=== PATIENT | female | born 1985 | race American Indian/Alaskan Native ===

== ENCOUNTER 2016-05-24 15:20 | Outpatient (CLI) | payer MEDICAID ==
[2016-05-24] MEDS ORDERED: TYLENOL PO ONE (15:58)
[2016-05-24] MEDS ORDERED: MORPHINE IV ONE (18:00)
[2016-05-24] MEDS ORDERED: PHENERGAN PO ONE (18:00)
[2016-05-24 18:20] VITALS: BP 110/61
== END 2016-05-24 18:30 | disposition home or self-care (01) ==
LOC: TRG 15:20
PROVIDERS: ATTEND Obstetrics & Gynecology
DX: O77.9 Labor and delivery complicated by fetal stress, unspecified (principal); O47.9 False labor, unspecified; Z3A.00 Weeks of gestation of pregnancy not specified
CPT/HCPCS: 59025; J2270; Q0169

== ENCOUNTER 2019-06-27 19:09 | Emergency (ER) | payer MEDICAID ==
[~2019-06-27 19:09] MED LIST: POTASSIUM CHLORIDE ER 20 MEQ TAB PO ONE
--- NOTE | 2019-06-27 21:56 | Event Note ---
ED Screening Note Date of service: 06/27/19 Time: 21:55 ED Screening Note: 33 y o f presents with abd pain x 2 weeks now experiencing n/v/d, dysuria LMP: 2 This initial assessment/diagnostic orders/clinical plan/treatment(s) is/are subject to change based on patients health status, clinical progression and re- assessment by fellow clinical providers in the ED. Further treatment and workup at subsequent clinical providers discretion. Patient/guardian urged not to elope from the ED as their condition may be serious if not clinically assessed and managed. Initial orders include: labs,ua,upt acc eval
[2019-06-27 22:55] LABS: Bilirubin,Urine NEG (Negative); Blood,Urine NEG (Negative); Color,Urine Amber (Yellow); Mucus,Urine 3+ /HPF
[2019-06-27 23:11] LABS: Basophils % (Auto) 0.2 % (0.0-1.8); Hematocrit 34.4 % (30.3-42.9); Hemoglobin 11.4 gm/dl (10.1-14.3); Lymphocytes # (Auto) 1.4 K/mm3 (1.2-5.4); Mean Corpuscular HGB Conc 33 % (30-34); Mean Corpuscular Volume 86 fl (79-97); Monocytes # (Auto) 1.3 K/mm3 (0.0-0.8); Monocytes % (Auto) 8.4 % (0.0-7.3); Platelet Count 428 K/mm3 (140-440); Red Blood Count 3.99 M/mm3 (3.65-5.03); Red Cell Distribution Width 13.3 % (13.2-15.2)
[2019-06-27 23:30] LABS: Alanine Aminotransferase 12 units/L (7-56); Albumin 3.1 g/dL (3.9-5); BUN/Creatinine Ratio 40; Blood Urea Nitrogen 8 mg/dL (7-17); Calcium 8.9 mg/dL (8.4-10.2); Hemolysis Index 5
[2019-06-27] MEDS ORDERED: cefTRIAXone/NS 1 GM/50 ML 1 GM/50 ML BAG IV ONE (23:48)
[2019-06-27] MEDS ORDERED: POTASSIUM CHLORIDE ER 20 MEQ TAB PO ONE ×2 (23:48→23:50)
[2019-06-27] MEDS ORDERED: ONDANSETRON 4 MG/2 ML INJ IV ONE (23:48)
[2019-06-27] MEDS ORDERED: SODIUM CHLORIDE 0.9% 1000 ML 1,000 ML IV ONE (23:48)
--- NOTE | 2019-06-28 00:37 | Emergency Department Report ---
ED Abdominal Pain HPI - General Chief Complaint: Abdominal Pain Stated Complaint: UTI Time Seen by Provider: 06/27/19 23:46 Source: patient, EMS Mode of arrival: Wheelchair Limitations: No Limitations - History of Present Illness Initial Comments: Ms Carrizales is a 33 y/o f , LMP: 06/06, who presents with abd pain x 2 weeks. she is now experiencing n/v/d, dysuria for last week, she was tx with keflex with no improvement in symptoms , states symptoms are exacerbated by activity, symptoms are relieved by nothing, Complaint: abdominal pain, flank pain Onset/Timin -: week(s) Location: bilateral flank Radiation: LLQ, suprapubic Migration to: suprapubic Severity: moderate Severity scale (0 -10): 7 Quality: sharp Consistency: constant Improves With: nothing Worsens With: movement Associated Symptoms: nausea, vomiting, diarrhea, fever, chills. denies: constipation, dysuria, melena - Related Data LMP Date: 06/06/19 Previous Rx's Medication Instructions Recorded Last Taken Type Vit No.130/Iron/Folic 1 each PO DAILY 30 Days tablet 01/28/16 05/23/16 09:00 Rx [ Tablet] 1 propylthiouraciL [Propylthiouracil] 100 mg PO TID 21 Days tablet 01/28/16 Unknown Rx Acetaminophen/Codeine [Tylenol #3] 1 tab PO Q6H PRN #7 tab 03/28/16 Unknown Rx Ondansetron [Zofran TAB] 4 mg PO Q8HR PRN #14 tablet 03/28/16 Unknown Rx Acetaminophen/Codeine [Tylenol 1 tab PO Q6H PRN #12 tab 06/28/19 Unknown Rx /Codeine # 3 tab] Ciprofloxacin HCl [Ciprofloxacin 500 mg PO BID 10 Days #20 tab 06/28/19 Unknown Rx TAB] Famotidine [Pepcid] 20 mg PO BID #30 tablet 06/28/19 Unknown Rx metroNIDAZOLE [Flagyl] 500 mg PO BID 10 Days #20 tab 06/28/19 Unknown Rx Allergies Allergy/AdvReac Type Severity Reaction Status Date / Time No Known Allergies Allergy Verified 11/11/13 10:49 ED Review of Systems ROS: Stated complaint: UTI Other details as noted in HPI Constitutional: denies: chills, fever Eyes: denies: eye pain, eye discharge, vision change ENT: denies: ear pain, throat pain Respiratory: denies: cough, shortness of breath, wheezing Cardiovascular: as per HPI Endocrine: no symptoms reported Gastrointestinal: abdominal pain, nausea, vomiting, diarrhea. denies: melena Genitourinary: urgency, dysuria, frequency. denies: hematuria, discharge, a bnormal menses Musculoskeletal: back pain (bilat flank) Skin: denies: rash, lesions Neurological: denies: headache, weakness, paresthesias Psychiatric: denies: anxiety, depression Hematological/Lymphatic: denies: easy bleeding, easy bruising ED Past Medical Hx - Past Medical History Previous Medical History?: No Hx Hypertension: No Hx CVA: No Hx Heart Attack/AMI: No Hx Congestive Heart Failure: No Hx Diabetes: No Hx Deep Vein Thrombosis: No Hx Pulmonary Embolism: No Hx GERD: No Hx Liver Disease: No Hx Renal Disease: No Hx Sickle Cell Disease: No Hx Arthritis: No Hx Headaches / Migraines: No Hx Seizures: No Hx Kidney Stones: No Hx Psychiatric Treatment: No Hx Asthma: No Hx COPD: No Hx Tuberculosis: No Hx Dementia: No Hx HIV: No - Surgical History Past Surgical History?: Yes Hx Coronary Stent: No Hx Open Heart Surgery: No Hx Pacemaker: No Hx Internal Defibrillator: No Hx Cholecystectomy: No Hx Appendectomy: No Hx Breast Surgery: No Additional Surgical History: x2 - Social History Smoking Status: Never Smoker - Medications Home Medications: Home Medications Medication Instructions Recorded Confirmed Last Taken Type Vit No.130/Iron/Folic 1 each PO DAILY 30 Days tablet 01/28/16 05/24/16 05/23/16 09:00 Rx [ Tablet] 1 propylthiouraciL [Propylthiouracil] 100 mg PO TID 21 Days tablet 01/28/16 05/24/16 Unknown Rx Acetaminophen/Codeine [Tylenol #3] 1 tab PO Q6H PRN #7 tab 03/28/16 05/24/16 Unknown Rx Ondansetron [Zofran TAB] 4 mg PO Q8HR PRN #14 tablet 03/28/16 05/24/16 Unknown Rx Acetaminophen/Codeine [Tylenol 1 tab PO Q6H PRN #12 tab 06/28/19 Unknown Rx /Codeine # 3 tab] Ciprofloxacin HCl [Ciprofloxacin 500 mg PO BID 10 Days #20 tab 06/28/19 Unknown Rx TAB] Famotidine [Pepcid] 20 mg PO BID #30 tablet 06/28/19 Unknown Rx metroNIDAZOLE [Flagyl] 500 mg PO BID 10 Days #20 tab 06/28/19 Unknown Rx ED Physical Exam - General Limitations: No Limitations General appearance: alert, in no apparent distress - Head Head exam: Present: atraumatic, normocephalic - Eye Eye exam: Present: normal appearance, PERRL, EOMI Pupils: Present: normal accommodation - ENT ENT exam: Present: mucous membranes moist - Neck Neck exam: Present: normal inspection, full ROM. Absent: tenderness - Respiratory Respiratory exam: Present: normal lung sounds bilaterally. Absent: respiratory distress, wheezes, stridor, chest wall tenderness - Cardiovascular Cardiovascular Exam: Present: regular rate, normal rhythm, normal heart sounds. Absent: systolic murmur, diastolic murmur, rubs, gallop - GI/Abdominal GI/Abdominal exam: Present: soft, tenderness (bilat lower quads), guarding (mild to deep palpation), normal bowel sounds. Absent: distended, rebound, rigid, bruit, hernia - Rectal Rectal exam: Present: deferred - Extremities Exam Extremities exam: Present: normal inspection, full ROM, normal capillary refill. Absent: tenderness - Back Exam Back exam: Present: normal inspection, full ROM, tenderness, CVA tenderness (R), CVA tenderness (L). Absent: vertebral tenderness - Expanded Back Exam Expanded Back exam: Absent: saddle anesthesia Back exam: Negative Straight Leg Raising: Left, Right - Neurological Exam Neurological exam: Present: alert, oriented X3, CN II-XII intact, normal gait - Psychiatric Psychiatric exam: Present: normal affect, normal mood - Skin Skin exam: Present: warm, dry, intact, normal color. Absent: rash ED Course Vital Signs 06/27/19 21:54 Temperature 98.5 F Pulse Rate 120 H Respiratory 18 Rate Blood Pressure 113/83 O2 Sat by Pulse 100 Oximetry ED Medical Decision Making - Lab Data Result diagrams: 06/27/19 22:41 06/27/19 22:41 Labs 06/27/19 06/27/19 06/27/19 22:41 22:41 22:41 WBC 15.1 H RBC 3.99 Hgb 11.4 Hct 34.4 MCV 86 MCH 29 MCHC 33 RDW 13.3 Plt Count 428 Lymph % (Auto) 9.0 L [place] % (Auto) 8.4 H Eos % (Auto) 0.0 Baso % (Auto) 0.2 Lymph # 1.4 [place] # 1.3 H Eos # 0.0 Baso # 0.0 Seg Neutrophils % 82.4 H Seg Neutrophils # 12.5 H Sodium 139 Potassium 2.8 L* Chloride 98.9 Carbon Dioxide 21 L Anion Gap 22 BUN 8 Creatinine 0.2 L Estimated GFR > 60 BUN/Creatinine Ratio 40 Glucose 81 Calcium 8.9 Total Bilirubin 0.60 AST 17 ALT 12 Alkaline Phosphatase 252 H Total Protein 7.1 Albumin 3.1 L Albumin/Globulin Ratio 0.8 Lipase 6 L HCG, Qual Negative Urine Color Urine Turbidity Urine pH Ur Specific [place] Urine Protein Urine Glucose (UA) Urine Ketones Urine Blood Urine Nitrite Urine Bilirubin Urine Urobilinogen Ur Leukocyte Esterase Urine WBC (Auto) Urine RBC (Auto) U Epithel Cells (Auto) Urine Mucus 06/27/19 Unknown WBC RBC Hgb Hct MCV MCH MCHC RDW Plt Count Lymph % (Auto) [place] % (Auto) Eos % (Auto) Baso % (Auto) Lymph # [place] # Eos # Baso # Seg Neutrophils % Seg Neutrophils # Sodium Potassium Chloride Carbon Dioxide Anion Gap BUN Creatinine Estimated GFR BUN/Creatinine Ratio Glucose Calcium Total Bilirubin AST ALT Alkaline Phosphatase Total Protein Albumin Albumin/Globulin Ratio Lipase HCG, Qual Urine Color Rosy Urine Turbidity Slightly-cloudy Urine pH 5.0 Ur Specific [place] 1.031 H Urine Protein 30 mg/dl Urine Glucose (UA) Neg Urine Ketones 20 Urine Blood Neg Urine Nitrite Neg Urine Bilirubin Neg Urine Urobilinogen 4.0 Ur Leukocyte Esterase Lg Urine WBC (Auto) 77.0 H Urine RBC (Auto) 18.0 U Epithel Cells (Auto) 22.0 H Urine Mucus 3+ - EKG Data EKG shows normal: sinus rhythm, axis, intervals Rate: normal - EKG Data When compared to previous EKG there are: previous EKG unavailable Interpretation: other (Sinus tachycardia with prolonged QT interval, no STEMI ) - Radiology Data Radiology results: report reviewed, image reviewed Findings Reporting MD: Besnon Carlin Dictation Time: June 28, 2019 00:09 Border Measurer: Not available Kosher Butcher Date: CT ABDOMEN AND PELVIS WITHOUT IV CONTRAST INDICATION: RENAL STONE PROTOCOL!!! Bi-Lateral abd pain that radiates to back. COMPARISON: CT 04/26/2015 TECHNIQUE: All CT scans at this facility use dose modulation, automated exposure control, iterative reconstruction or weight based dosing, when appropriate, to reduce radiation dose to as low as reasonably achievable. FINDINGS: Lung Bases: No significant abnormality. Skeletal System: No acute abnormality. ABDOMEN: Liver: No significant abnormality. Gallbladder: Contracted Bile Ducts: No significant abnormality. Pancreas: No significant abnormality. Spleen: No significant abnormality. Adrenals: No significant abnormality. Right Kidney: No significant abnormality. Left Kidney: No significant abnormality. Upper GI tract: Proximal small bowel in the left upper quadrant is edematous and there is mild diffuse mesenteric edema. More distal small bowel is mildly distended with fluid diffusely. Lymph Nodes: No significant adenopathy. Aorta: No significant abnormality. Additional Findings: No significant abnormality. PELVIS: Colon: No acute abnormality. Diverticulosis is noted. Urinary Bladder and Distal Ureters: No significant abnormality. Appendix: No significant ab normality. Lymph Nodes: No significant adenopathy. Additional Findings: There is a 3.5 cm left ovarian cyst on image 134 of the axial series. IUD is noted in expected position. Calcified uterine fibroid is again noted, unchanged. IMPRESSION: 1. Diffuse enteritis. [facility] [address] [place] [address] P [phone] F [phone] - Medical Decision Making CT: uterine fribroid, Diverticulosis, enteritis, ua: pos for luek, wbc, rbc, CBC: wbc:15. pt tx'd with rocephin 1 gm ivpb, NS x 2 liters, kdur 4omEq po x 2 doses, ekg: stach. Pt there is states symptoms improved, pt tolerating po intake at this time, without n/v, there is no fever , hr is improved, abd pain is 2/10 at this time. plan: dc to home with rx for : Cipro, flagyl, pepcid, Tylenol #3, continue to hydrate, follow up with primary care in 2-3 days, pt verbalized agreement and understanding of discharge paln. pt will return to emergency if symptoms worsen.. pt is currently a/o x 3, ambulatory with steady and in nad. Critical care attestation.: If time is entered above; I have spent that time in minutes in the direct care of this critically ill patient, excluding procedure time. ED Disposition Clinical Impression: Nausea and vomiting in adult, Mild dehydration UTI (urinary tract infection) Qualifiers: Urinary tract infection type: acute cystitis Hematuria presence: without hematuria Qualified Code(s): N30.00 - Acute cystitis without hematuria Disposition: TO HOME OR SELFCARE Is pt being admited?: No Does the pt Need Aspirin: No Condition: Stable Instructions: Abdominal Pain (ED), Acute Nausea and Vomiting (ED), Dehydration (ED), Urinary Tract Infection in Women (ED) Prescriptions: Ciprofloxacin HCl [Ciprofloxacin TAB] 500 mg PO BID 10 Days #20 tab metroNIDAZOLE [Flagyl] 500 mg PO BID 10 Days #20 tab Famotidine [Pepcid] 20 mg PO BID #30 tablet Acetaminophen/Codeine [Tylenol /Codeine # 3 tab] 1 tab PO Q6H PRN #12 tab PRN Reason: pain Referrals: RITA PORTER MD [Staff Physician] - 3-5 Days Forms: Work/School Release Form(ED) Time of Disposition: 02:58
--- NOTE | 2019-06-28 01:13 | Cat Scan Report ---
CT ABDOMEN AND PELVIS WITHOUT IV CONTRAST INDICATION: RENAL STONE PROTOCOL!!! Bi-Lateral abd pain that radiates to back. COMPARISON: CT 04/26/2015 TECHNIQUE: All CT scans at this facility use dose modulation, automated exposure control, iterative reconstructi on or weight based dosing, when appropriate, to reduce radiation dose to as low as reasonably achieva ble. FINDINGS: Lung Bases: No significant abnormality. Skeletal System: No acute abnormality. ABDOMEN: Liver: No significant abnormality. Gallbladder: Contracted Bile Ducts: No significant abnormality. Pancreas: No significant abnormality. Spleen: No significant abnormality. Adrenals: No significant abnormality. Right Kidney: No significant abnormality. Left Kidney: No significant abnormality. Upper GI tract: Proximal small bowel in the left upper quadrant is edematous and there is mild diffus e mesenteric edema. More distal small bowel is mildly distended with fluid diffusely. Lymph Nodes: No significant adenopathy. Aorta: No significant abnormality. Additional Findings: No significant abnormality. PELVIS: Colon: No acute abnormality. Diverticulosis is noted. Urinary Bladder and Distal Ureters: No significant abnormality. Appendix: No significant abnormality. Lymph Nodes: No significant adenopathy. Additional Findings: There is a 3.5 cm left ovarian cyst on image 134 of the axial series. IUD is not ed in expected position. Calcified uterine fibroid is again noted, unchanged. IMPRESSION: 1. Diffuse enteritis. 2. Incidental findings, as above. Signer Name: Benson Carlin MD Signed: 06/28/2019 1:09 AM Workstation Name: [id number]
[2019-06-28] MEDS ORDERED: SODIUM CHLORIDE 0.9% 1000 ML 1,000 ML IV ONE (02:35)
[2019-06-28 04:19] VITALS: BP 112/66
== END 2019-06-28 03:10 | disposition home or self-care (01) ==
LOC: ED 19:09
DX: E86.0 Dehydration (principal); R10.32 Left lower quadrant pain; R30.0 Dysuria; Z98.890 Other specified postprocedural states; Z79.899 Other long term (current) drug therapy
CPT/HCPCS: 36415; 74176; 80053; 81001; 83690; 84703; 85025; 87086; 93005; 93010; 96361; 96365; 96375; 99284; J0696; J2405; J7030

== ENCOUNTER 2020-01-03 23:02 | Emergency (ER) | payer MEDICAID ==
[2020-01-04] MEDS ORDERED: ACETAMINOPHEN 325 MG TAB PO ONE (04:12)
[2020-01-04] MEDS ORDERED: ACETAMINOPHEN 325 MG TAB ONE (04:14)
[2020-01-04] MEDS ORDERED: HYDROcodone/ACETAMINOPHEN 7.5-325MG TAB PO ONE (05:50)
[2020-01-04] MEDS ORDERED: AMOXICILLIN/K CLAV 875/125MG TAB PO ONE (05:50)
[2020-01-04] MEDS ORDERED: ONDANSETRON 4 MG ODT TAB PO ONE (05:50)
[2020-01-04] MEDS ORDERED: KETOROLAC 30 MG/1 ML INJ IM ONE (05:50)
[2020-01-04] MEDS ORDERED: dexAMETHasone 20 MG/5 ML VIAL IM ONE (05:51)
[2020-01-04 06:51] VITALS: BP 121/82
--- NOTE | 2020-01-04 06:56 | Emergency Department Report ---
ED General Adult HPI - General Chief complaint: Dental/Oral Stated complaint: LEFT JAW PAIN Source: patient Mode of arrival: Ambulatory Limitations: No Limitations - History of Present Illness Initial comments: Patient is a 34 yo AA female with no past medical history who presents to the ED with c/o acute onset persistent severely painful swollen left maxillary maxillary gingiva with severely painful left maxillary premolar and molar toothache for the last 2 days. Patient states that she has been taking OTC pain medications with no relief. Patient states that her symptoms got worse in the last 6 hours. Patient denies dyspnea, nausea, vomiting, dizziness, cough, sore throat, fever, chills, abdominal pain, traumatic injury or vision changes and neck pain MD Complaint: left maxillary premolar and molar toothache with swollen gums -: Sudden, days(s) (2) Location: face, mouth Radiation: non-radiation Severity scale (0 -10): 8 Quality: aching, sharp Consistency: constant Improves with: none Worsens with: none Associated Symptoms: denies other symptoms, headaches, loss of appetite, malaise. denies: chest pain, cough, diaphoresis, fever/chills, nausea/vomiting, rash, shortness of breath, weakness Treatments Prior to Arrival: none - Related Data Previous Rx's Medication Instructions Recorded Last Taken Type Vit No.130/Iron/Folic 1 each PO DAILY 30 Days tablet 01/28/16 05/23/16 09:00 Rx [ Tablet] 1 propylthiouraciL [Propylthiouracil] 100 mg PO TID 21 Days tablet 01/28/16 Unknown Rx Acetaminophen/Codeine [Tylenol #3] 1 tab PO Q6H PRN #7 tab 03/28/16 Unknown Rx Ondansetron [Zofran TAB] 4 mg PO Q8HR PRN #14 tablet 03/28/16 Unknown Rx Acetaminophen/Codeine [Tylenol 1 tab PO Q6H PRN #12 tab 06/28/19 Unknown Rx /Codeine # 3 tab] Ciprofloxacin HCl [Ciprofloxacin 500 mg PO BID 10 Days #20 tab 06/28/19 Unknown Rx TAB] Famotidine [Pepcid] 20 mg PO BID #30 tablet 06/28/19 Unknown Rx metroNIDAZOLE [Flagyl] 500 mg PO BID 10 Days #20 tab 06/28/19 Unknown Rx Acetaminophen/Codeine [Tylenol 1 tab PO Q6H PRN #12 tab 01/04/20 Unknown Rx /Codeine # 3 tab] Clindamycin [Clindamycin CAP] 150 mg PO Q8HR #60 capsule 01/04/20 Unknown Rx Ketorolac [Toradol] 10 mg PO Q8H PRN #20 tablet 01/04/20 Unknown Rx Ondansetron [Zofran Odt] 4 mg PO Q6HR PRN #15 tab.rapdis 01/04/20 Unknown Rx predniSONE [Deltasone] 40 mg PO QDAY #10 tab 01/04/20 Unknown Rx Allergies Allergy/AdvReac Type Severity Reaction Status Date / Time No Known Allergies Allergy Verified 11/11/13 10:49 ED Review of Systems ROS: Stated complaint: LEFT JAW PAIN Other details as noted in HPI Constitutional: denies: chills, fever Eyes: denies: eye pain, eye discharge, vision change ENT: dental pain (left maxillary premolar and molar toothache; swollen left maxillary gums). denies: ear pain, throat pain Respiratory: denies: cough, shortness of breath, wheezing Cardiovascular: denies: chest pain, palpitations Endocrine: no symptoms reported Gastrointestinal: denies: abdominal pain, nausea, vomiting, diarrhea Genitourinary: denies: urgency, dysuria, discharge Musculoskeletal: denies: back pain, joint swelling, arthralgia Skin: denies: rash, lesions Neurological: denies: headache, weakness, paresthesias Psychiatric: denies: anxiety, depression Hematological/Lymphatic: denies: easy bleeding, easy bruising ED Past Medical Hx - Past Medical History Hx Hypertension: No Hx CVA: No Hx Heart Attack/AMI: No Hx Congestive Heart Failure: No Hx Diabetes: No Hx Deep Vein Thrombosis: No Hx Pulmonary Embolism: No Hx GERD: No Hx Liver Disease: No Hx Renal Disease: No Hx Sickle Cell Disease: No Hx Arthritis: No Hx Headaches / Migraines: No Hx Seizures: No Hx Kidney Stones: No Hx Psychiatric Treatment: No Hx Asthma: No Hx COPD: No Hx Tuberculosis: No Hx Dementia: No Hx HIV: No - Surgical History Past Surgical History?: Yes Hx Coronary Stent: No Hx Open Heart Surgery: No Hx Pacemaker: No Hx Internal Defibrillator: No Hx Cholecystectomy: No Hx Appendectomy: No Hx Breast Surgery: No Additional Surgical History: x2 - Social History Smoking Status: Never Smoker Substance Use Type: None - Medications Home Medications: Home Medications Medication Instructions Recorded Confirmed Last Taken Type Vit No.130/Iron/Folic 1 each PO DAILY 30 Days tablet 01/28/16 05/24/16 05/23/16 09:00 Rx [ Tablet] 1 propylthiouraciL [Propylthiouracil] 100 mg PO TID 21 Days tablet 01/28/16 05/24/16 Unknown Rx Acetaminophen/Codeine [Tylenol #3] 1 tab PO Q6H PRN #7 tab 03/28/16 05/24/16 Unknown Rx Ondansetron [Zofran TAB] 4 mg PO Q8HR PRN #14 tablet 03/28/16 05/24/16 Unknown Rx Acetaminophen/Codeine [Tylenol 1 tab PO Q6H PRN #12 tab 06/28/19 Unknown Rx /Codeine # 3 tab] Ciprofloxacin HCl [Ciprofloxacin 500 mg PO BID 10 Days #20 tab 06/28/19 Unknown Rx TAB] Famotidine [Pepcid] 20 mg PO BID #30 tablet 06/28/19 Unknown Rx metroNIDAZOLE [Flagyl] 500 mg PO BID 10 Days #20 tab 06/28/19 Unknown Rx Acetaminophen/Codeine [Tylenol 1 tab PO Q6H PRN #12 tab 01/04/20 Unknown Rx /Codeine # 3 tab] Clindamycin [Clindamycin CAP] 150 mg PO Q8HR #60 capsule 01/04/20 Unknown Rx Ketorolac [Toradol] 10 mg PO Q8H PRN #20 tablet 01/04/20 Unknown Rx Ondansetron [Zofran Odt] 4 mg PO Q6HR PRN #15 tab.rapdis 01/04/20 Unknown Rx predniSONE [Deltasone] 40 mg PO QDAY #10 tab 01/04/20 Unknown Rx ED Physical Exam - General Limitations: No Limitations General appearance: alert, in no apparent distress - Head Head exam: Present: atraumatic, normocephalic, normal inspection - Eye Eye exam: Present: normal appearance, PERRL, EOMI Pupils: Present: normal accommodation - ENT ENT exam: Present: mucous membranes moist, TM's normal bilaterally, normal external ear exam, other (Swollen severely tender left maxillary gingiva; severely tender left maxillary premolar and molar teeth) - Neck Neck exam: Present: normal inspection, full ROM, lymphadenopathy - Respiratory Respiratory exam: Present: normal lung sounds bilaterally. Absent: respiratory distress, wheezes, rales, stridor, chest wall tenderness, accessory muscle use - Cardiovascular Cardiovascular Exam: Present: regular rate, normal rhythm, normal heart sounds. Absent: systolic murmur, diastolic murmur, rubs, gallop - GI/Abdominal GI/Abdominal exam: Present: soft, normal bowel sounds. Absent: tenderness, guarding, rebound, hyperactive bowel sounds, hypoactive bowel sounds, organomegaly - Extremities Exam Extremities exam: Present: normal inspection, full ROM, normal capillary refill - Back Exam Back exam: Present: normal inspection, full ROM. Absent: tenderness, CVA tenderness (R), CVA tenderness (L), muscle spasm, paraspinal tenderness, vertebral tenderness - Neurological Exam Neurological exam: Present: alert, oriented X3, CN II-XII intact, normal gait, reflexes normal - Psychiatric Psychiatric exam: Present: normal affect, normal mood - Skin Skin exam: Present: warm, dry, intact, normal color. Absent: rash ED Course Vital Signs 01/04/20 04:15 Respiratory 18 Rate ED Medical Decision Making - Medical Decision Making This is a 34 yo AA female with no past medical history who presents to the ED with c/o acute onset persistent severely painful swollen left maxillary maxillary gingiva with severely painful left maxillary premolar and molar toothache for the last 2 days. Patient states that she has been taking OTC pain medications with no relief. In the ED, patient is alert and oriented x 3 and is in no acute distress except pain. Patient was treated for pain and also given oral antibiotics and steroids. On reevaluation, patient's pain improved signif icantly. Patient was discharged home on pain medications and was advised to follow up with her Dentist or Primary Care Physician in 7-10 days for reevaluation. Patient was advised to return to the ED immediately fi symptoms get worse. - Differential Diagnosis acute gingivitis; dental abscess; dental caries Critical care attestation.: If time is entered above; I have spent that time in minutes in the direct care of this critically ill patient, excluding procedure time. ED Disposition Clinical Impression: Acute gingivitis, Dental abscess, Dental caries Disposition: TO HOME OR SELFCARE Is pt being admited?: No Does the pt Need Aspirin: No Condition: Stable Instructions: Dental Abscess (ED), Dental Caries (ED), Gingivitis (ED) Additional Instructions: Take medications with food, drink plenty of fluids and follow up with your Primary Care Physician or dentist in 7-10 days for reevaluation. Return to the ED immediately if symptoms get worse. Prescriptions: Clindamycin [Clindamycin CAP] 150 mg PO Q8HR #60 capsule predniSONE [Deltasone] 40 mg PO QDAY #10 tab Ketorolac [Toradol] 10 mg PO Q8H PRN #20 tablet PRN Reason: Pain Acetaminophen/Codeine [Tylenol /Codeine # 3 tab] 1 tab PO Q6H PRN #12 tab PRN Reason: Pain , Severe (7-10) Ondansetron [Zofran Odt] 4 mg PO Q6HR PRN #15 tab.rapdis PRN Reason: Nausea Referrals: [facility] [Outside] - 3-5 Days [facility] [Outside] - 3-5 Days Forms: Work/School Release Form(ED) Time of Disposition: 07:00 Print Language: GERMAN
== END 2020-01-04 07:43 | disposition home or self-care (01) ==
LOC: ED 23:02
DX: K02.9 Dental caries, unspecified (principal); K04.7 Periapical abscess without sinus; K05.00 Acute gingivitis, plaque induced; Z98.890 Other specified postprocedural states; Z79.899 Other long term (current) drug therapy
CPT/HCPCS: 96372; 99281; J1100; J1885; Q0162